=== PATIENT | male | born 1950 | race Caucasian/White ===

== ENCOUNTER → 2019-05-28 10:09 | Outpatient (BNVA) | payer OTHER, SELFPAY | PROVIDERS: Family Provider Internal Medicine; PCP Internal Medicine; Visit Provider Urology | DX: N40.1 Benign prostatic hyperplasia with lower urinary tract symptoms (principal); N13.8 Other obstructive and reflux uropathy; R97.20 Elevated prostate specific antigen [PSA] | CPT/HCPCS: 81001; 84153 ==

== ENCOUNTER → 2019-11-26 10:22 | Outpatient (BNVA) | payer OTHER, SELFPAY | PROVIDERS: Family Provider Internal Medicine; PCP Internal Medicine; Visit Provider Urology | DX: R97.20 Elevated prostate specific antigen [PSA] (principal); N40.1 Benign prostatic hyperplasia with lower urinary tract symptoms; N13.8 Other obstructive and reflux uropathy | CPT/HCPCS: 81001; 84153 ==

== ENCOUNTER → 2020-07-28 13:48 | Outpatient (BNVA) | payer OTHER, SELFPAY | PROVIDERS: Family Provider Internal Medicine; PCP Internal Medicine; Visit Provider Urology | DX: R97.20 Elevated prostate specific antigen [PSA] (principal); N13.8 Other obstructive and reflux uropathy; N40.1 Benign prostatic hyperplasia with lower urinary tract symptoms; R31.9 Hematuria, unspecified | CPT/HCPCS: 81003; 84153; 87086; 88112 ==

== ENCOUNTER 2020-08-18 07:50 | Outpatient (CLI) | payer OTHER, SELFPAY ==
[2020-08-18 08:46] LABS: Blood Urea Nitrogen 14 mg/dL (8-23); Glomerular Filtration Rate 83.4 mL/min (90-130)
[2020-08-18] MEDS: iohexol 300 mg/mL 100 mL Btl IV (09:11)
--- NOTE | 2020-08-18 09:30 | CT_ITS ---
WS: [id number] CT ABDOMEN AND PELVIS WITH AND WITHOUT CONTRAST HISTORY: R31.0 - Gross hematuria TECHNIQUE: Unenhanced 5 mm axial imaging first performed through the abdomen. Post contrast imaging t hrough the abdomen and pelvis. Oral contrast has not been provided. Sagittal and coronal reformats a re submitted. All CT scans at [facility] use at least one of these dose optimization tech niques: automated exposure control; mA and/or kV adjustment per patient size (includes targeted exams where dose is matched to clinical indication); or iterative reconstruction. CONTRAST: Omnipaque 300; 95 mL IV. DLP: 2646.06 mGy.cm COMPARISON: None available. Lung bases are clear. There are several micronodules or vessel seen on end in the LEFT lower lobe. He art is normal size. Small hiatal hernia. Liver, spleen, gallbladder and pancreas are negative. No adrenal mass. Mild atherosclerosis aorta wit h no aneurysm. No ascites or adenopathy. RIGHT kidney: 10.9 cm in length. Very minimal chronic appearing perinephric stranding. No calcificati ons or soft tissue masses. No ureteral obstruction. There is near complete filling of the RIGHT urete r with contrast on the delayed imaging. There is a very slight narrowing of the distal RIGHT ureter b est seen on image 165 of series 3. LEFT kidney: 13.7 cm in length. Mild chronic appearing perinephric stranding. No calcification or obs truction. There is a duplicated collecting system with no hydronephrosis. Ureters join near the pelvi c brim. Only partial opacification of the ureters on the LEFT. Distal LEFT ureter is not well visuali zed. Nondistended urinary bladder. No calcifications in the bladder. Prostate gland is markedly enlarged e xtending over a length of 7.6 cm x 6.8 x 5.9 cm with mild heterogeneous enhancement. Ureters enter ne ar the prostate gland hypertrophy but no obstruction at this time. No free fluid or adenopathy in the pelvis. Inguinal canals are patent bilaterally. The appendix is normal. No GI tract obstruction. Sigmoid diverticula without acute diverticulitis. Mild lumbar spondylosis. CT/CT abdomen pelvis wo/w [id number] IMPRESSION: 1. No solid renal mass or obstruction. 2. Duplicated LEFT renal collecting system. 3. Markedly enlarged prostate with heterogeneous enhancement measures 7.6 x 6. 8 x 5.9 cm. Correlate with PSA levels. 4. Incomplete filling of the distal ureters. No definite mass identified. 5. Normal appendix.
== END 2020-08-18 07:51 | disposition home or self-care (01) ==
PROVIDERS: PCP Internal Medicine; Visit Provider Urology
DX: R31.0 Gross hematuria (principal); N40.0 Benign prostatic hyperplasia without lower urinary tract symptoms; N40.1 Benign prostatic hyperplasia with lower urinary tract symptoms; N13.8 Other obstructive and reflux uropathy
CPT/HCPCS: 36415; 74178; 81003; 82565; 84520

== ENCOUNTER → 2020-09-27 09:40 | Outpatient (BNVA) | payer OTHER, SELFPAY | PROVIDERS: PCP Internal Medicine | DX: Z20.822 Contact with and (suspected) exposure to COVID-19 (principal) | CPT/HCPCS: 87635 ==

== ENCOUNTER 2021-02-17 | Outpatient (CLI) | payer OTHER, SELFPAY | END 2021-02-17 00:01 | disposition home or self-care (01) | LOC: RAD 08-29 09:33 | PROVIDERS: PCP Internal Medicine; Visit Provider Urology | DX: N40.1 Benign prostatic hyperplasia with lower urinary tract symptoms (principal); N13.8 Other obstructive and reflux uropathy; R97.20 Elevated prostate specific antigen [PSA] | CPT/HCPCS: 81003; 84153 ==

== ENCOUNTER → 2021-08-09 15:25 | Outpatient (BNVA) | payer OTHER, SELFPAY | PROVIDERS: PCP Internal Medicine; Visit Provider Urology | DX: R97.20 Elevated prostate specific antigen [PSA] (principal); N40.1 Benign prostatic hyperplasia with lower urinary tract symptoms; N13.8 Other obstructive and reflux uropathy; R31.0 Gross hematuria | CPT/HCPCS: 81003; 84153 ==

== ENCOUNTER 2021-09-20 09:32 | Outpatient (CLI) | payer MEDICARE, SELFPAY ==
--- NOTE | 2021-09-20 | XR_ITS ---
WS: [id number] Left shoulder, 3 views, 09/20/2021 Clinical Data: PAIN, JOINT SHOULDER LEFT Comparison: None. Findings: No fractures or dislocations are seen. There is minimal irregularity of the glenoid rim. The AC joint shows mild osteoarthritic change. The adjacent left clavicle, left scapula and ribs are normal. The soft tissues are unremarkable. 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
== END 2021-09-20 09:33 | disposition home or self-care (01) ==
PROVIDERS: PCP Internal Medicine; Visit Provider Nurse Practitioner Family
DX: M19.012 Primary osteoarthritis, left shoulder (principal)
CPT/HCPCS: 73030

== ENCOUNTER → 2022-02-20 13:22 | Outpatient (BNVA) | payer MEDICARE, OTHER, SELFPAY | PROVIDERS: PCP Internal Medicine; Visit Provider Urology | DX: N40.1 Benign prostatic hyperplasia with lower urinary tract symptoms (principal); N13.8 Other obstructive and reflux uropathy; R97.20 Elevated prostate specific antigen [PSA] | CPT/HCPCS: 99213 ==

== ENCOUNTER 2022-06-18 22:22 | Emergency (ER) | payer OTHER, SELFPAY ==
[2022-06-18 22:29] VITALS: BP 163/92; PULSE 108; RESP 16; TEMP 36.7; O2SAT 95; BMI 25.8
--- NOTE | 2022-06-18 22:36 | ED_ITS ---
Documented by User: ARIES Bravo 06/19/22 00:26 HPI - Male Genitourinary General: Chief complaint: Urogenital-Male Stated complaint: Cant Urinate Time Seen by Provider: 06/18/22 22:32 History of Present Illness: Patient is a 72-year-old male who comes to the ED with urinary complaint. Patient states that he has not been able to urinate since 1300 today. He has a history of an enlarged prostate. He has never had this happen before in the past. He states that around 1300 today he was able to dribble out a little bit of urine but still felt like he had more urine in his bladder. The rest of the day he has not been able to urinate at all and his bladder is feeling more full and the pressure is causing more discomfort. He denies any blood in the urine, fevers, nausea/vomiting. Patient is already established with and sees Dr. Beltran. Associated symptoms: Deny dysuria, hematuria, nausea or vomiting Review of Systems Const: Denies: fever(s), chills or fatigue Eyes: Denies: change in vision or eye discomfort ENMT: Denies: throat pain, odynophagia, nasal discharge or nasal congestion Card: Denies: chest pain, palpitations, edema, swelling of feet/ankles, dyspnea on exertion or orthopnea Resp: Denies: dyspnea, productive cough or non-productive cough GI: Denies: abdominal pain, nausea, vomiting, diarrhea, constipation or hematochezia : Reports: difficulty urinating and urinary dribbling; Denies: flank pain, dysuria or hematuria Musc: Denies: neck pain, back pain or extremity swelling Skin/Breast: Denies: rash or new lesions Neuro: Denies: headache(s), numbness in extremities or weakness in extremities PFSH ED PFSH: Medical History BPH w urinary obs/LUTS Elevated PSA Gross hematuria Family History Mother , at age 85 Parkinsons Father , at age 85 Stroke Social History Smoking and tobacco status: never smoked Alcohol intake: never Marital status: Current occupational status: retired Current gender identity: Male Physical Exam Const: COMMON NORMALS: patient oriented x3, healthy appearing and alert GENERAL APPEARANCE: cooperative; not comfortable (Patient appears uncomfortable and is walking around room) HENMT: COMMON NORMALS: normocephalic HEAD & SCALP: normocephalic MOUTH: Normal oral and palatal mucosa present THROAT: posterior oropharynx normal and uvula midline Neck/C-Spine: COMMON NORMALS: supple GENERAL: Yes normal visual inspection Resp: COMMON NORMALS: normal respiratory effort, No retractions, No use of accessory muscles and clear to auscultation bilaterally AUSCULTATION: clear to auscultation bilaterally Cardio: COMMON NORMALS: regular rate, regular rhythm, S1 normal heart sound present, S2 normal heart sound present, No gallops present (Cardio), No clicks present (Cardio), No murmurs present (Cardio) and Peripheral pulses 2+ throughout RATE: regular rate RHYTHM: regular rhythm HEART SOUNDS: S1 normal heart sound present and S2 normal heart sound present PERIPHERAL PULSES: Peripheral pulses 2+ throughout GI: COMMON NORMALS: Normal to inspection, nondistended, normoactive bowel sounds present, Soft to palpation, non-tender and no masses PALPATION: Yes Soft to palpation and Yes Bladder palpation abnormal : COMMON NORMALS: Yes no CVA tenderness BLADDER/KIDNEY EXAM: Yes no CVA tenderness and Yes Bladder palpation abnormal Bladder abnormal details: tender and distended midway to the umbilicus Back/Pelvis: COMMON NORMALS: no CVA tenderness Extremity: COMMON NORMALS: normal to inspection Neuro: COMMON NORMALS: patient oriented x3 SENSORIUM/ORIENTATION: Yes alert GAIT: Yes Normal gait present Skin: GENERAL SKIN EXAM: dry skin Course ED course: Nurse performed bladder scan and he had over 500 mL in his bladder. Vital Signs: Vital signs: Vital Signs Temperature 98.1 F 06/18/22 22:29 Pulse Rate 108 H 06/18/22 22:29 Respiratory Rate 16 06/18/22 22:29 Blood Pressure 163/92 06/18/22 22:29 Pulse Oximetry 95 06/18/22 22:29 Oxygen Delivery Me thod 06/18/22 22:29 [facility] - Male Medical Decision Making Patient is a 72-year-old male who comes to the ED with urinary retention. He has not been able to urinate since 1300 today. History of enlarged prostate and he is a current patient of Dr. Beltran. Denies any hematuria, nausea/vomiting or fevers. Vitals are stable. Patient has some bladder tenderness and bladder distention midway to the umbilicus. Rest of exam is benign. Nurse performed bladder scan and he had over 500 mL in his bladder. Davies catheter was placed and over 500 mL drained into bag. Patient felt immediate relief and is more comfortable now. Urinalysis patient is already an established patient of Dr. Beltran's. I placed an order with case management for patient to get set up for an appointment with Dr. Beltran. I also told patient to contact Dr. Beltran's office on Sunday morning to try to get something set up as well. Patient was discharged home with Davies catheter in place and nurse instructed patient on Davies catheter care and management. Return ED precautions given. Patient understood and agreed with plan. Lab Data Laboratory Results Urine Color Yellow (Yellow) 06/18/22 23:00 Urine Appearance Clear (CLEAR) 06/18/22:00 Urine pH 5 (5-7) 06/18/22: Ur Specific [place] 1.015 (1.005-1.030) 06/18/22 23:00 Urine Protein Neg (Negative) 06/18/22 23:00 Urine Glucose (UA) Norm (Normal) 06/18/22 23:00 Urine Ketones Negative (Negative) 06/18/22 23:00 Urine Blood 2+ (Negative) H 06/18/22 23:00 Urine Nitrate Negative (Negative) 06/18/22 23: Urine Bilirubin Neg (Negative) 06/18/22 23: Urine Urobilinogen Neg mg/dL (Negative) 06/18/22 23: Ur Leukocyte Esterase Negative (Negative) 06/18/22 23: Urine RBC 25-40 /hpf (0-2) H 06/18/22 23:00 Urine WBC 0-4 /hpf (0-5) H 06/18/22 23:00 Ur Squamous Epith Cells 0-4 /hpf (0-5) H 06/18/22 23:00 Amorphous Sediment Not Reportable 06/18/22 23: Urine Bacteria Trace /hpf (NONE) 06/18/22 23: Urine Mucus 1+ /hpf 06/18/22 23:00 Discharge Plan Discharge Patient Disposition: Home Clinical Impression: Acute urinary retention Condition: Stable Prescriptions: No Action levothyroxine 75 mcg capsule 75 mcg PO DAILY tamsulosin 0.4 mg capsule 0.4 mg PO DAILY fluorouracil 0.5 % cream 1 applic TOPICAL DAILY quinapril 40 mg tablet 40 mg PO DAILY hydrochlorothiazide 25 mg tablet 25 mg PO DAILY aspirin 81 mg tablet,delayed release (DR/EC) 81 mg PO DAILY multivitamin Tablet 1 tab PO DAILY atorvastatin 10 mg tablet 10 mg PO DAILY Discharge Orders: Discharge ED (Routine); Ordered 06/19/22 Ordered By: Todd Vazquez Referrals: Ramón Washington, [Primary Care Provider] - Discharge Diet: Regular Discharge Activity: Increase activity as tolerated Patient Instructions: Urinary Retention in Men (ED), Davies Catheter Placement and Care (ED), How to Change a Catheter Drainage Bag (DC) Activity Restrictions/Additional Instructions: Follow-up with medical provider as directed. Contact Dr. Beltran's office tomorrow morning to set up an appointment as soon as possible for follow-up and further evaluation of acute urinary retention with Davies catheter placed. Continue taking all home medications as previously prescribed. Return to the ER or your medical provider if condition worsens. Please read and understand discharge instructions. Thank you for choosing [facility] for your healthcare needs today. Please realize this is an emergency room and that we are providing you with a medical screening exam and this may not be complete and all inclusive of all the testing and or work up that you may need to determine your ailment or severity of your illness. It is very important that you follow up as instructed or that you return to the Emergency Department should you have concerns or if your condition changes or worsens in any way. Coding Level of Care Code ED Patient Partner for Chg Fwd Documented by User: Manuel Guzman DO 06/19/22 00:49 HPI - Male Genitourinary General: Chief complaint: Urogenital-Male Stated complaint: Cant Urinate Time Seen by Provider: 06/18/22 22:32 PFSH ED PFSH: Medical History BPH w urinary obs/LUTS Elevated PSA Gross hematuria Family History Mother , at age 85 Parkinsons Father , at age 85 Stroke Social History Smoking and tobacco status: never smoked Alcohol intake: never Marital status: Current occupational status: retired Current gender identity: Male Course Vital Signs: Vital signs: Vital Signs Temperature 98.1 F 06/18/22 22:29 Pulse Rate 108 H 06/18/22 22:29 Respiratory Rate 16 06/18/22 22:29 Blood Pressure 163/92 06/18/22 22:29 Pulse Oximetry 95 06/18/22 22:29 Oxygen Delivery Me thod 06/18/22 22:29 MDM - Male Medical Decision Making Patient is a 72-year-old male who comes to the ED with urinary retention. He has not been able to urinate since 1300 today. History of enlarged prostate and he is a current patient of Dr. Beltran. Denies any hematuria, nausea/vomiting or fevers. Vitals are stable. Patient has some bladder tenderness and bladder distention midway to the umbilicus. Rest of exam is benign. Nurse performed bladder scan and he had over 500 mL in his bladder. Davies catheter was placed and over 500 mL drained into bag. Patient felt immediate relief and is more comfortable now. Urinalysis patient is already an established patient of Dr. Beltran'mark anthony. I placed an order with case management for patient to get set up for an appointment with Dr. Beltran. I also told patient to contact Dr. Beltran's office on Sunday morning to try to get something set up as well. Patient was discharged home with Davies catheter in place and nurse instructed patient on Davies catheter care and management. Return ED precautions given. Patient understood and agreed with plan. This patient was originally seen by Mr. Taylor PA-C.? I agree with his history, evaluation, and treatment. Lab Data Laboratory Results Urine Color Yellow (Yellow) 06/18/22 23:00 Urine Appearance Clear (CLEAR) 06/18/22 23:00 Urine pH 5 (5-7) 06/18/22 23:00 Ur Specific [place] 1.015 (1.005-1.030) 06/18/22 23:00 Urine Protein Neg (Negative) 06/18/22 23:00 Urine Glucose (UA) Norm (Normal) 06/18/22 23:00 Urine Ketones Negative (Negative) 06/18/22 23:00 Urine Blood 2+ (Negative) H 06/18/22 23:00 Urine Nitrate Negative (Negative) 06/18/22 23:00 Urine Bilirubin Neg (Negative) 06/18/22 23:00 Urine Urobilinogen Neg mg/dL (Negative) 06/18/22 23:00 Ur Leukocyte Esterase Negative (Negative) 06/18/22 23:00 Urine RBC 25-40 /hpf (0-2) H 06/18/22 23:00 Urine WBC 0-4 /hpf (0-5) H 06/18/22 23:00 Ur Squamous Epith Cells 0-4 /hpf (0-5) H 06/18/22 23:00 Amorphous Sediment Not Reportable 06/18/22 23:00 Urine Bacteria Trace /hpf (NONE) 06/18/22 23:00 Urine Mucus 1+ /hpf 06/18/22 23:00 Discharge Plan Discharge Patient Disposition: Home Clinical Impression: Acute urinary retention Condition: Stable Prescriptions: No Action levothyroxine 75 mcg capsule 75 mcg PO DAILY tamsulosin 0.4 mg capsule 0.4 mg PO DAILY fluorouracil 0.5 % cream 1 applic TOPICAL DAILY quinapril 40 mg tablet 40 mg PO DAILY hydrochlorothiazide 25 mg tablet 25 mg PO DAILY aspirin 81 mg tablet,delayed release (DR/EC) 81 mg PO DAILY multivitamin Tablet 1 tab PO DAILY atorvastatin 10 mg tablet 10 mg PO DAILY Discharge Orders: Discharge ED (Routine); Ordered 06/19/22 Ordered By: Todd Vazquez Referrals: Ramón Washington DO [Primary Care Provider] - Discharge Diet: Regular Discharge Activity: Increase activity as tolerated Patient Instructions: Urinary Retention in Men (ED), Davies Catheter Placement and Care (ED), How to Change a Catheter Drainage Bag (DC) Activity Restrictions/Additional Instructions: Follow-up with medical provider as directed. Contact Dr. Beltran's office tomorrow morning to set up an appointment as soon as possible for follow-up and further evaluation of acute urinary retention with Davies catheter placed. Continue taking all home medications as previously prescribed. Return to the ER or your medical provider if condition worsens. Please read and understand discharge instructions. Thank you for choosing [facility] for your healthcare needs today. Please realize this is an emergency room and that we are providing you with a medical screening exam and this may not be complete and all inclusive of all the testing and or work up that you may need to determine your ailment or severity of your illness. It is very important that you follow up as instructed or that you return to the Emergency Department should you have concerns or if your condition changes or worsens in any way. Coding Level of Care Code ED Patient Partner for Adalgisa Soliman
[2022-06-18 23:49] LABS: Add Urine Microscopic? YES; Bilirubin Urine Neg (Negative); Blood Urine 2+ (Negative); Glucose Urine UA Norm (Normal); Ketones Urine Negative (Negative); Leukocyte Esterase Urine Negative (Negative); Nitrate Urine Negative (Negative); Protein Urine Neg (Negative); Specific Gravity, Urine 1.015 (1.005-1.030); Urine Appearance Clear (CLEAR); Urine Color Yellow (Yellow); Urobilinogen Urine Neg (Negative); pH Urine 5 (5-7)
[2022-06-18 23:51] LABS: Add Urine Culture? Yes; Bacteria Urine TRACE /hpf; Mucus Urine 1+ /hpf; RBC Urine 25-40 /hpf (0-2); Squamous Epithelial Cell Urine 0-4 /hpf (0-5); WBC Urine 0-4 /hpf (0-5)
--- NOTE | 2022-06-19 15:45 | DCPLANNER ---
Addendum entered by Heather Franco 07/05/22 08:16: this appointment was rescheduled Addendum entered by Heather Franco 06/20/22 13:30: Patient has a followup appointment scheduled for Monday, July 04, 2022 at 8:[address] aldridge at urology. Clinic will call patient with appointment information. Original Note: pension fund manager had message to schedule a follow up appointment for patient with urology. pension fund manager sent patients information to the front office staff at urology. Patients information will be printed and reviewed. Clinic will call patient with appointment information.
== END 2022-06-19 00:23 | disposition home or self-care (01) ==
PROVIDERS: Emergency Provider Physician Assistant; PCP Internal Medicine
DX: R33.9 Retention of urine, unspecified (principal); Z79.82 Long term (current) use of aspirin; N40.0 Benign prostatic hyperplasia without lower urinary tract symptoms
CPT/HCPCS: 51702; 51798; 81001; 87086; 99283